=== PATIENT | male | born 1995 | race Caucasian/White ===

== ENCOUNTER → 2017-03-23 | Outpatient (CLI) | payer OTHER | END | disposition home or self-care (01) | LOC: CFH 06:59 | PROVIDERS: ATTEND Nurse Practitioner Family | DX: R10.9 Unspecified abdominal pain (principal) | CPT/HCPCS: 76700 ==

== ENCOUNTER 2018-07-07 19:03 | Emergency (ER) | payer OTHER ==
[~2018-07-07] VITALS: Ht 167.6 cm; Wt 64.5 kg
[2018-07-07 19:04] VITALS: BP 162/80
[2018-07-07] MEDS ORDERED: DEXAMETHASONE 4 MG TABLET PO STA (19:47)
[2018-07-07] MEDS ORDERED: ONDANSETRON ODT 4 MG ONE (19:58)
[2018-07-07] MEDS ORDERED: DEXAMETHASONE 4 MG TABLET ONE (19:58)
[2018-07-07] MEDS ORDERED: ONDANSETRON ODT 4 MG PO ONE (20:00)
== END 2018-07-07 20:06 | disposition home or self-care (01) ==
LOC: ED 19:56
DX: J02.0 Streptococcal pharyngitis (principal)
CPT/HCPCS: 87081; 87880; 99284; Q0162